=== PATIENT | female | born 1990 | race African-American/Black ===

== ENCOUNTER 2024-02-11 13:02 | Emergency (ER) | payer OTHER, MEDICAID ==
[~2024-02-11] VITALS: Ht 165.1 cm; Wt 65.0 kg
[~2024-02-11 13:02] MED LIST: IBUP-2030 PO
[2024-02-11 13:12] VITALS: O2SAT 100
[2024-02-11] MEDS: PREDNISONE 20MG TABLET PO NR (16:00)
[2024-02-11] MEDS: ALPRAZOLAM 0.25 MG TABLET PO NR (16:00)
[2024-02-11] MEDS: IPRATROPIUM/ALBUTEROL 0.5-3(2.5)MG/3ML NEB HHN NR (16:01)
[2024-02-11] MEDS: METHYLPREDNISOLONE SOD SUCC 125MG/2ML (ACT-O-VIAL) IV ONE (17:33)
[2024-02-11] MEDS: ONDANSETRON HCL 4MG/2ML INJ IV ONE (17:33)
[2024-02-11] MEDS ORDERED: IBUP-2029 MT (18:33)
[2024-02-11] MEDS ORDERED: P50 MT (18:33)
[2024-02-11] MEDS ORDERED: ALBU18HF2 IH (18:33)
[2024-02-11] MEDS ORDERED: METH-653 MT (18:33)
[2024-02-11] MEDS ORDERED: ONDA-239 PO (18:36)
[2024-02-11] MEDS: CYCLOBENZAPRINE 10MG TABLET PO ONE (18:43)
[2024-02-11] MEDS: IBUPROFEN 600MG TABLET PO ONE (18:43)
[2024-02-11 18:55] VITALS: BP 144/83; PULSE 60; RESP 18; TEMP 36.89184; O2SAT 100
== END 2024-02-11 19:00 | disposition home or self-care (01) ==
LOC: ER 13:27
DX: J45.901 Unspecified asthma with (acute) exacerbation (principal); G89.29 Other chronic pain; M54.50 Low back pain, unspecified; F41.9 Anxiety disorder, unspecified; Z98.890 Other specified postprocedural states
CPT/HCPCS: 81025; 94640; 98960; 96374; 96375; 99284; J7512; J2919; J2405; Z7610 ×3